=== PATIENT | female | born 1965 | race Caucasian/White ===

== ENCOUNTER 2023-01-11 14:38 | Inpatient (IN) ==
[2023-01-11 15:13] LABS: ABS Basophils 0.1 10^3/uL (0.0-0.1); ABS Monocytes 0.5 10^3/uL (0.0-0.9); ABS Neutrophils 5.5 10^3/uL (1.5-7.6); ABS Nucleated RBC 0.01 10^3/ul; Eosinophil % 0.6 %; Hematocrit 45.8 % (35-45); Hemoglobin 15.7 g/dL (11.5-14.3); Lymphocyte % 24.5 %; Mean Corpuscular Hemoglobin 32.6 pg (27-33); Mean Corpuscular Hgb Conc 34.3 g/dL (31-36); Nucleated Red Blood Cells % 0.1 %/100WBC (0.0-0.8); Platelet Count 258 10^3/uL (150-450); Red Blood Count 4.82 10^6/uL (3.63-4.92); Red Cell Distribution Width 12.6 % (12-17); White Blood Count 8.1 10^3/uL (3.8-11.8)
[2023-01-11 15:30] LABS: INR 1.05 (0.83-1.13)
[2023-01-11 15:45] LABS: Albumin 4.3 g/dL (3.2-5.2); Albumin/Globulin Ratio 1.5 (1-3); Calcium 9.4 mg/dL (8.6-10.3); Creatinine, Serum 1.11 mg/dL (0.51-0.95); Globulin 2.9 g/dL (2-4); Potassium 4.3 mmol/L (3.5-5.0); Total Bilirubin 0.5 mg/dL (0.2-1.0); Total Protein 7.2 g/dL (6.4-8.9); eGFR CKD-EPI 58.7 (>60)
[2023-01-11] MEDS ORDERED: Lactated Ringers 1000 ml BAG 1,000 ML IV ONE (15:45)
[2023-01-11] MEDS: Heparin 5000 UNITS/ML 1 mL VIAL IV SCH ×2 (16:11→23:12)
[2023-01-11 16:12] LABS: Venous Bicarbonate HCO3 25.3 mmol/L (24-28)
[2023-01-11] MEDS: Heparin DRIP 25,000 UNITS BAG 25,000 UNITS/250 ML BAG IV SCH (16:14)
[2023-01-11] MEDS ORDERED: Iodixanol (CONTRAST) 320 MG/ML 100 ML SDV IV ONE (16:22)
[2023-01-11 16:36] LABS: Creatinine, Serum 1.01 mg/dL (0.51-0.95); eGFR CKD-EPI 65.7 (>60)
[2023-01-11] MEDS ORDERED: Dextrose 50% Syringe 50 ml 25 GM/50 ML SYRINGE IV PUSH PRN (18:17)
[2023-01-11 18:20] LABS: Magnesium 1.9 mg/dL (1.9-2.7)
[2023-01-11] MEDS ORDERED: Ondansetron 4 mg VIAL 2 MG/ML 2 ml VIAL IV PRN (21:16)
[2023-01-11] MEDS ORDERED: Ondansetron 4 mg VIAL 2 MG/ML 2 ml VIAL ONE (21:22)
[2023-01-12 06:22] LABS: ABS Eosinophils 0.1 10^3/uL (0.0-0.5); ABS Lymphocytes 2.4 10^3/uL (1.0-4.8); ABS Monocytes 0.5 10^3/uL (0.0-0.9); ABS Neutrophils 3.2 10^3/uL (1.5-7.6); ABS Nucleated RBC 0.01 10^3/ul; Eosinophil % 1.9 %; Hematocrit 40.2 % (35-45); Hemoglobin 14.1 g/dL (11.5-14.3); Lymphocyte % 38.4 %; Mean Corpuscular Hemoglobin 32.8 pg (27-33); Mean Corpuscular Hgb Conc 35.1 g/dL (31-36); Mean Corpuscular Volume 93.4 fL (80-97); Nucleated Red Blood Cells % 0.1 %/100WBC (0.0-0.8); Platelet Count 200 10^3/uL (150-450); Red Cell Distribution Width 12.6 % (12-17); White Blood Count 6.2 10^3/uL (3.8-11.8)
[2023-01-12] MEDS: [UNRECOGNIZED DRUG - OTHER] PO SCH (06:24)
[2023-01-12] MEDS: LEVOTHYROXINE PO SCH (06:24)
[2023-01-12] MEDS: Aspirin EC 81 mg TAB.EC (enteric coated) PO SCH (08:49)
[2023-01-12] MEDS: Heparin DRIP 25,000 UNITS BAG 25,000 UNITS/250 ML BAG IV SCH (13:59)
[2023-01-12] MEDS ORDERED: Lactated Ringers 1000 ml BAG 1,000 ML IV SCH (15:00)
[2023-01-13] MEDS: [UNRECOGNIZED DRUG - OTHER] PO SCH ×2 (05:57→06:09)
[2023-01-13] MEDS: LEVOTHYROXINE PO SCH ×2 (05:57→06:09)
[2023-01-13] MEDS ORDERED: NS 0.9% 1000 ml BAG 1,000 ML IV ONE (06:00)
[2023-01-13 06:23] LABS: ABS Eosinophils 0.1 10^3/uL (0.0-0.5); ABS Monocytes 0.3 10^3/uL (0.0-0.9); ABS Neutrophils 2.4 10^3/uL (1.5-7.6); ABS Nucleated RBC 0.01 10^3/ul; Hematocrit 40.1 % (35-45); Hemoglobin 13.9 g/dL (11.5-14.3); Lymphocyte % 40.8 %; Mean Corpuscular Hemoglobin 32.2 pg (27-33); Mean Corpuscular Hgb Conc 34.6 g/dL (31-36); Nucleated Red Blood Cells % 0.1 %/100WBC (0.0-0.8); Platelet Count 188 10^3/uL (150-450); Red Blood Count 4.31 10^6/uL (3.63-4.92); Red Cell Distribution Width 12.7 % (12-17); White Blood Count 4.8 10^3/uL (3.8-11.8)
[2023-01-13 06:50] LABS: Calcium 8.8 mg/dL (8.6-10.3); Creatinine, Serum 0.68 mg/dL (0.51-0.95); Magnesium 1.7 mg/dL (1.9-2.7); Phosphorus 3.8 mg/dL (2.5-5.0); Potassium 3.7 mmol/L (3.5-5.0); eGFR CKD-EPI 102.8 (>60)
[2023-01-13] MEDS ORDERED: [UNRECOGNIZED DRUG - OTHER] PO SCH (07:00)
[2023-01-13] MEDS ORDERED: LEVOTHYROXINE PO SCH (07:00)
[2023-01-13] MEDS ORDERED: Sulfur Hexaflouride MICROSPHR 25 MG VIAL ONE (07:59)
[2023-01-13] MEDS: Aspirin EC 81 mg TAB.EC (enteric coated) PO SCH (08:10)
[2023-01-13] MEDS ORDERED: fentaNYL 100 mcg/2 ml 50 MCG/ML VIAL ONE (08:52)
[2023-01-13] MEDS ORDERED: Midazolam 5 mg/5 ml VIAL 1 mg/ml 5 ml VIAL (5 mg) ONE (08:52)
[2023-01-13] MEDS ORDERED: Heparin 1,000 UNIT/ML 10 ml (10,000 UNITS) CATHLAB/DIALYSIS ONE (08:53)
[2023-01-13] MEDS ORDERED: nitroGLYCERIN DRIP 25,000 MCG/250 ML BTL ONE (08:53)
[2023-01-13] MEDS ORDERED: VERAPAMIL 2.5 MG/ML 2 ML VIAL ** 5 mg/2 ml ONE (08:53)
[2023-01-13] MEDS ORDERED: Heparin 2 UNITS/ML 1000 mls 2,000 ML IV ONE (08:53)
[2023-01-13] MEDS ORDERED: Iohexol 350 (CONTRAST) 200 ML MDV IV ONE (08:54)
[2023-01-13] MEDS ORDERED: Lidocaine 1% MPF 5 ML VIAL ONE (08:54)
[2023-01-13] MEDS ORDERED: Pneumococcal Vac 23-Polyvalent IM ONE (09:00)
[2023-01-13] MEDS ORDERED: Midazolam 10 mg/10 ml VIAL 1 mg/ml 10 ml VIAL (10 mg) IV SLOW PU ONE (09:24)
[2023-01-13] MEDS ORDERED: fentaNYL 100 mcg/2 ml 50 MCG/ML VIAL IV SLOW PU ONE (09:24)
[2023-01-13] MEDS ORDERED: NS 0.9% 1000 ml BAG 1,000 ML IV SCH (10:15)
[2023-01-13 15:41] VITALS: BP 146/83
== END 2023-01-13 16:55 | disposition home or self-care (01) | DRG 190 ==
LOC: ED 14:38 → EDHOLD 14:38 → MEDTELE 20:01
PROVIDERS: ADMIT Hospitalist; ATTEND Hospitalist